=== PATIENT | male | born 1955 | race Caucasian/White ===

== ENCOUNTER 2020-05-09 03:14 | Outpatient (CLI) | payer BC, SELFPAY ==
[2020-05-09 19:05] LABS: SARS-CoV-2 RNA PCR Negative
== END 2020-05-09 03:15 | disposition home or self-care (01) ==
LOC: ANHCOVIDDT 03:14
PROVIDERS: PCP Internal Medicine; Visit Provider Internal Medicine Gastroenterology
DX: Z01.812 Encounter for preprocedural laboratory examination (principal); Z20.828 Contact with and (suspected) exposure to other viral communicable diseases
CPT/HCPCS: 87635; C9803; U0003

== ENCOUNTER 2020-05-11 00:25 | Day surgery (SDC) | payer BC, SELFPAY ==
[2020-05-07 10:27] VITALS: BMI 29.4
[2020-05-11 08:34] VITALS: BP 143/91; PULSE 77; RESP 18; TEMP 36.6; O2SAT 98
--- NOTE | 2020-05-11 08:36 | WPDANESEPPF ---
Anes - Initial Pre Proc Eval Procedure: Operation Date: 05/11/20 09:00 Proposed Procedures p Screening Colonoscopy - Roni Rolon MD Date/Time: 05/11/20 08:36 Surgeon: Roni Rolon MD Pre Op Diagnosis: Neoplasm Screening Patient Data Age: 64 Gender: M Height: 1.78 m Weight: 97.2 kg Last Vital Signs Temp 36.6 C 05/11/20 08:34 Pulse 77 05/11/20 08:34 Resp 18 05/11/20 08:34 BP 143/91 H 05/11/20 08:34 Pulse Ox 98 05/11/20 08:34 Allergies Allergy/AdvReac Type Severity Reaction Status Date / Time Sulfa (Sulfonamide Allergy Unknown Unknown Verified 05/11/20 08:33 Antibiotics) Home Medications Medication Instructions Recorded Confirmed Type peg 3350-electrolytes 236 240 ml PO Q10M #4000 ml 03/28/20 Rx gram-22.74 gram-6.74 gram-5.86 gram solution Adult Low Dose Aspirin 81 mg PO DAILY 05/07/20 05/11/20 History alprazolam 0.5 mg PO PRN PRN 05/07/20 05/07/20 History famotidine 20 mg PO DAILY 05/07/20 05/07/20 History lisinopril-hydrochlorothiazide 12.5 - 20 tablet PO DAILY 05/07/20 05/07/20 History rosuvastatin 5 mg PO DAILY 05/07/20 05/07/20 History sertraline 50 mg PO DAILY 05/07/20 05/07/20 History Patient hx anesthesia problems: none Family hx anesthesia problems: none PMFSH Past Medical History Medical History (Updated 05/11/20 @ 08:38 by Armond Clay MD) Actinic keratosis Anxiety Chronic GERD History of SCC (squamous cell carcinoma) of skin Hypercholesterolemia Hypertension Obesity Surgical History Surgical History History of blepharoplasty History of cholecystectomy History of tonsillectomy Family History Family History Father Heart disease Skin cancer Sibling Heart disease Cancer Skin cancer Mother Kidney disease Cancer Social History Social History (Reviewed 03/13/20 @ 08:15 by HAYLEY Cannon Smoking status: Former smoker Tobacco type: cigars Alcohol intake: current Alcohol use details: SOCIALLY Substance use: unknown Substance use type: does not use Living arrangements: with family Spiritual care concerns: No Anes - Eval Final PreProcedure Day of Procedure 05/11/20 08:36 Patient weight: obese Heart: regular rate and rhythm Lungs: clear to auscultation and normal air movement Airway: Mallampati scale class II Neurological: alert and oriented Last oral intake: >/= 8 hours ASA classification: III Emergent: no Anesthetic plan: proceed Anesthesia type and monitoring: general GIVS Informed Consent: The patient's anesthetic plan and its attendant risks and benefits were discussed with the patient/family/POA. Questions were solicited and answers provided to the satisfaction of the patient/family/POA.
[2020-05-11] MEDS: LACTATED RINGERS 1,000 ML 150 ML IV CONT (08:43)
--- NOTE | 2020-05-11 09:26 | PM.HPGS ---
History of Present Illness History of Present Illness Consent: Risks, benefits, and alternatives have been discussed and questions answered. Patient agrees to proceed with procedure. Chief complaint: Neoplasm Screening Narrative: Darian Duran is a 64 year old male with polyps, last colonoscopy 5 years ago Review of Systems Constitutional: Constitutional: Denies headache(s) and Denies weakness Eyes: Eyes: Denies blurry vision ENT: Reports Normal hearing present, Denies headache(s) and Denies neck pain Cardiovascular: Cardiovascular: Denies chest pain and Denies dyspnea Respiratory: Respiratory: Denies dyspnea Gastrointestinal: Gastrointestinal: Reports no additional gastrointestinal complaints Genitourinary: Genitourinary: Denies dysuria Musculoskeletal: Musculoskeletal: Denies neck pain Integumentary/Breasts: Skin/Breast: Denies dry skin Neurologic: Reports Normal hearing present, Denies headache(s) and Denies weakness Psychiatric: Psychiatric: Denies anxiety Endocrine: Endocrine: Denies change in body appearance Hematologic/Lymphatic: Hematologic/Lymphatic: Denies easy bleeding Allergic/Immunologic: Allergic/Immunologic: Denies urticaria PMFSH Past Medical History Medical History (Updated 05/11/20 @ 09:26 by Roni Rolon MD) Actinic keratosis Adenomatous colon polyp Anxiety Chronic GERD History of SCC (squamous cell carcinoma) of skin Hypercholesterolemia Hypertension Obesity Surgical History Surgical History History of blepharoplasty History of cholecystectomy History of tonsillectomy Family History Family History Father Heart disease Skin cancer Sibling Heart disease Cancer Skin cancer Mother Kidney disease Cancer Social History Social History Smoking status: Former smoker Tobacco type: cigars Alcohol intake: current Alcohol use details: SOCIALLY Substance use: unknown Substance use type: does not use Living arrangements: with family Spiritual care concerns: No Meds Home Medications and Allergies Home Medications Medication Instructions Recorded Confirmed Type peg 3350-electrolytes 236 240 ml PO Q10M #4000 ml 03/28/20 Rx gram-22.74 gram-6.74 gram-5.86 gram solution Adult Low Dose Aspirin 81 mg PO DAILY 05/07/20 05/11/20 History alprazolam 0.5 mg PO PRN PRN 05/07/20 05/07/20 History famotidine 20 mg PO DAILY 05/07/20 05/07/20 History lisinopril-hydrochlorothiazide 12.5 - 20 tablet PO DAILY 05/07/20 05/07/20 History rosuvastatin 5 mg PO DAILY 05/07/20 05/07/20 History sertraline 50 mg PO DAILY 05/07/20 05/07/20 History Allergies Allergy/AdvReac Type Severity Reaction Status Date / Time Sulfa (Sulfonamide Allergy Unknown Unknown Verified 05/11/20 08:33 Antibiotics) Vital Signs Vital Signs - 24 hr 05/11/20 08:34 Temperature 97.8 F Pulse Rate 77 Respiratory Rate 18 Blood Pressure 143/91 H Pulse Oximetry 98 Exam Const: General: comfortable and no acute distress HENMT: General nose exam: Normal nares present Eyes: General: appearance normal, both eyes and all related structures Neck: Neck: no JVD Resp: Auscultation: clear to auscultation bilaterally Cardio: Rate: regular rate Rhythm: regular rhythm GI: Inspection: non-distended GI Palp: Yes Soft to palpation Skin: General skin exam: normal color Neuro: General: gait normal Speech: normal speech Extrem: General: normal to inspection Psych: Mental Status: mental status grossly normal Assessment and Plan Assessment and plan (1) Adenomatous colon polyp: Code(s): D12.6 - Benign neoplasm of colon, unspecified Status: Acute Assessment and Plan: will proceed with colonoscopy
[2020-05-11 09:29] VITALS: BP 136/66; PULSE 69; RESP 20; O2SAT 97
[2020-05-11 09:39] VITALS: BP 131/88; PULSE 70; RESP 20; O2SAT 100
[2020-05-11 09:49] VITALS: BP 136/90; PULSE 62; RESP 17; O2SAT 100
== END 2020-05-11 09:53 | disposition home or self-care (01) ==
PROVIDERS: PCP Internal Medicine; Visit Provider Internal Medicine Gastroenterology
PROC: 0DJD8ZZ Inspection of Lower Intestinal Tract, Via Natural or Artificial Opening Endoscopic (ICD-10-PCS; CPT 45378; principal; 2020-05-11 09:00)
DX: Z12.11 Encounter for screening for malignant neoplasm of colon (principal); K63.5 Polyp of colon; D12.3 Benign neoplasm of transverse colon; K21.9 Gastro-esophageal reflux disease without esophagitis; I10 Essential (primary) hypertension; E78.00 Pure hypercholesterolemia, unspecified; E66.9 Obesity, unspecified; K64.8 Other hemorrhoids; F41.9 Anxiety disorder, unspecified; Z85.828 Personal history of other malignant neoplasm of skin; Z90.49 Acquired absence of other specified parts of digestive tract
CPT/HCPCS: 45385; 45380; 88305; J2704; J7120

== ENCOUNTER → 2021-07-25 11:46 | Outpatient (CLI) | payer BC, SELFPAY ==
--- NOTE | ~2021-07-25 | XR_ITS ---
EXAMINATION: XR chest 2V DATE: 07/25/2021 11:55 INDICATION: Bronchitis. 10 days of cough and C5-6 days of shortness of breath. TECHNIQUE: PA and lateral views of the chest were obtained. COMPARISON: None FINDINGS: The lungs are clear with no focal airspace opacities, pulmonary edema, pleural effusion or pneumothor ax. The cardiomediastinal silhouette is normal. Mild thoracic spondylosis. IMPRESSION: 1. No acute cardiopulmonary disease. Reviewed, dictated and finalized at location B. ERECTOR
== END ==
PROVIDERS: PCP Internal Medicine; Visit Provider Internal Medicine
DX: J40 Bronchitis, not specified as acute or chronic (principal)
CPT/HCPCS: 71046

== ENCOUNTER 2022-03-26 01:04 | Day surgery (SDC) | payer BC, SELFPAY ==
[2022-03-13 08:38] VITALS: BMI 31.6
[2022-03-26 08:26] VITALS: BP 128/92; PULSE 62; RESP 20; TEMP 36.5; O2SAT 98
[2022-03-26] MEDS: LACTATED RINGERS 1,000 ML 150 ML IV CONT (08:42)
--- NOTE | 2022-03-26 08:51 | WPDANESEPPF ---
Anes - Initial Pre Proc Eval Procedure: Operation Date: 03/26/22 10:15 Proposed Procedures p Esophagogastroduodenoscopy - Roni Rolon MD Date/Time: 03/26/22 08:51 Surgeon: Roni Rolon MD Pre Op Diagnosis: dysphagia Patient Data Age: 66 Gender: M Height: 1.78 m Weight: 101.2 kg Last Vital Signs Temp 97.7 F 03/26/22 08:26 Pulse 62 03/26/22 08:26 Resp 20 03/26/22 08:26 BP 128/92 H 03/26/22 08:26 Pulse Ox 98 03/26/22 08:26 O2 Del Method Room Air 03/26/22 08:26 Allergies Allergy/AdvReac Type Severity Reaction Status Date / Time Sulfa (Sulfonamide Allergy Unknown Unknown Verified 03/26/22 08:25 Antibiotics) Home Medications Medication Instructions Recorded Confirmed Type peg 3350-electrolytes 236 240 ml PO Q10M #4,000 mL 03/28/20 03/13/22 Rx gram-22.74 gram-6.74 gram-5.86 gram solution (Golytely) Adult Low Dose Aspirin 81 mg PO DAILY 05/07/20 03/13/22 History alprazolam 0.5 mg tablet 0.5 mg PO PRN PRN Sleep 05/07/20 03/13/22 History famotidine 20 mg tablet 20 mg PO DAILY 05/07/20 03/13/22 History lisinopril 20 12.5 - 20 tablet PO DAILY 05/07/20 03/13/22 History mg-hydrochlorothiazide 12.5 mg tablet rosuvastatin 5 mg tablet 5 mg PO DAILY 05/07/20 03/13/22 History sertraline 50 mg tablet 50 mg PO DAILY 05/07/20 03/13/22 History fluticasone propionate 44 44 mcg inhalation 2XD 03/13/22 03/13/22 History mcg/actuation HFA aerosol inhaler (Flovent HFA) Patient hx anesthesia problems: none Family hx anesthesia problems: none Results Review: All pre-operative results and documents have been reviewed as part of the pre-operative evaluation. [facility] Past Medical History Medical History Actinic keratosis Adenomatous colon polyp Anxiety Chronic GERD History of SCC (squamous cell carcinoma) of skin Hypercholesterolemia Hypertension Obesity Surgical History Surgical History History of blepharoplasty History of cholecystectomy History of tonsillectomy Family History Family History Father Heart disease Skin cancer Sibling Heart disease Cancer Skin cancer Mother Kidney disease Cancer Social History Social History Smoking status: Never smoker Tobacco type: cigars Alcohol intake: current Drinks per week: 3 Alcohol use details: SOCIALLY Substance use: never Substance use type: does not use Living arrangements: with family Spiritual care concerns: No Anes - Eval Final PreProcedure Day of Procedure 03/26/22 08:51 Patient weight: obese Heart: regular rate and rhythm Lungs: clear to auscultation Airway: Mallampati scale class II Neurological: alert and oriented Last oral intake: >/= 8 hours ASA classification: III Emergent: no Anesthetic plan: proceed Anesthesia type and monitoring: general GIVS and standard monitoring Results Review: All pre-operative results and documents have been reviewed as part of the pre-operative evaluation. Informed Consent: The patient's anesthetic plan and its attendant risks and benefits were discussed with the patient/family/POA. Questions were solicited and answers provided to the satisfaction of the patient/family/POA.
--- NOTE | 2022-03-26 09:04 | PM.HPGS ---
History of Present Illness History of Present Illness Consent: Risks, benefits, and alternatives have been discussed and questions answered. Patient agrees to proceed with procedure. Chief complaint: dysphagia Narrative: Darian Duran is a 66 year old male with sensation of gagging after eating and nausea, had EGD but years ago, using famotidine Review of Systems Constitutional: Constitutional: Denies headache(s) and Denies weakness Eyes: Eyes: Denies blurry vision ENT: Reports Normal hearing present, Denies headache(s) and Denies neck pain Cardiovascular: Cardiovascular: Denies chest pain and Denies dyspnea Respiratory: Respiratory: Denies dyspnea Gastrointestinal: Gastrointestinal: Reports no additional gastrointestinal complaints Genitourinary: Genitourinary: Denies dysuria Musculoskeletal: Musculoskeletal: Denies neck pain Integumentary/Breasts: Skin/Breast: Denies dry skin Neurologic: Reports Normal hearing present, Denies headache(s) and Denies weakness Psychiatric: Psychiatric: Denies anxiety Endocrine: Endocrine: Denies change in body appearance Hematologic/Lymphatic: Hematologic/Lymphatic: Denies easy bleeding Allergic/Immunologic: Allergic/Immunologic: Denies urticaria PMF Past Medical History Medical History (Updated 03/26/22 @ 09:05 by Roni Rolon MD) Actinic keratosis Adenomatous colon polyp Anxiety Choking Chronic GERD History of SCC (squamous cell carcinoma) of skin Hypercholesterolemia Hypertension Obesity Surgical History Surgical History History of blepharoplasty History of cholecystectomy History of tonsillectomy Family History Family History Father Heart disease Skin cancer Sibling Heart disease Cancer Skin cancer Mother Kidney disease Cancer Social History Social History Smoking status: Never smoker Tobacco type: cigars Alcohol intake: current Drinks per week: 3 Alcohol use details: SOCIALLY Substance use: never Substance use type: does not use Living arrangements: with family Spiritual care concerns: No Meds Home Medications and Allergies Home Medications Medication Instructions Recorded Confirmed Type peg 3350-electrolytes 236 240 ml PO Q10M #4,000 mL 03/28/20 03/13/22 Rx gram-22.74 gram-6.74 gram-5.86 gram solution (Golytely) Adult Low Dose Aspirin 81 mg PO DAILY 05/07/20 03/13/22 History alprazolam 0.5 mg tablet 0.5 mg PO PRN PRN Sleep 05/07/20 03/13/22 History famotidine 20 mg tablet 20 mg PO DAILY 05/07/20 03/13/22 History lisinopril 20 12.5 - 20 tablet PO DAILY 05/07/20 03/13/22 History mg-hydrochlorothiazide 12.5 mg tablet rosuvastatin 5 mg tablet 5 mg PO DAILY 05/07/20 03/13/22 History sertraline 50 mg tablet 50 mg PO DAILY 05/07/20 03/13/22 History fluticasone propionate 44 44 mcg inhalation 2XD 03/13/22 03/13/22 History mcg/actuation HFA aerosol inhaler (Flovent HFA) Allergies Allergy/AdvReac Type Severity Reaction Status Date / Time Sulfa (Sulfonamide Allergy Unknown Unknown Verified 03/26/22 08:25 Antibiotics) Vital Signs Vital Signs - 24 hr 03/26/22 08:26 Temperature 97.7 F Pulse Rate 62 Respiratory Rate 20 Blood Pressure 128/92 H Pulse Oximetry 98 Oxygen Delivery Room Air Exam Const: General: comfortable and no acute distress HENMT: General nose exam: Normal nares present Eyes: General: appearance normal, both eyes and all related structures Neck: Neck: no JVD Resp: Auscultation: clear to auscultation bilaterally Cardio: Rate: regular rate Rhythm: regular rhythm GI: Inspection: non-distended GI Palp: Yes Soft to palpation Skin: General skin exam: normal color Neuro: General: gait normal Speech: normal speech Extrem: General: normal to inspect
[2022-03-26] MEDS: BENZOCAINE (*SP) 60 ML SPRAY CAN (HURRICAINE) 1 SPRAY MUCOUS MEM (09:09)
[2022-03-26 09:19] VITALS: BP 110/75; PULSE 66; RESP 17; O2SAT 99
[2022-03-26 09:29] VITALS: BP 122/83; PULSE 55; RESP 18; O2SAT 98
[2022-03-26 09:39] VITALS: BP 138/87; PULSE 54; RESP 18; O2SAT 99
== END 2022-03-26 09:43 | disposition home or self-care (01) ==
PROVIDERS: PCP Internal Medicine; Visit Provider Internal Medicine Gastroenterology
PROC: 0DJ08ZZ Inspection of Upper Intestinal Tract, Via Natural or Artificial Opening Endoscopic (ICD-10-PCS; CPT 43235; principal; 2022-03-26 10:15)
DX: R13.10 Dysphagia, unspecified (principal); K21.00 Gastro-esophageal reflux disease with esophagitis, without bleeding; K29.50 Unspecified chronic gastritis without bleeding; K44.9 Diaphragmatic hernia without obstruction or gangrene; I10 Essential (primary) hypertension; E78.00 Pure hypercholesterolemia, unspecified; E66.9 Obesity, unspecified; F41.9 Anxiety disorder, unspecified; Z90.49 Acquired absence of other specified parts of digestive tract; Z86.010 Personal history of colon polyps
CPT/HCPCS: 43239; 88305; J2704; J7120

== ENCOUNTER 2023-04-09 08:00 | Outpatient (NON) | payer MEDICARE, OTHER, SELFPAY | END 2023-04-09 08:01 | disposition home or self-care (01) | PROVIDERS: PCP Internal Medicine; Visit Provider Nurse Practitioner | DX: L57.0 Actinic keratosis (principal) | CPT/HCPCS: 88305 ==

== ENCOUNTER 2023-05-05 12:42 | Outpatient (NON) | payer MEDICARE, OTHER, SELFPAY | END 2023-05-05 12:43 | disposition home or self-care (01) | PROVIDERS: PCP Internal Medicine; Visit Provider Nurse Practitioner | DX: D48.5 Neoplasm of uncertain behavior of skin (principal) | CPT/HCPCS: 88305 ==

== ENCOUNTER 2025-04-25 00:52 | Day surgery (SDC) | payer MEDICARE, OTHER, SELFPAY ==
[2025-04-14 13:00] VITALS: BMI 33.3
--- NOTE | 2025-04-14 13:29 | PC.NURSE ---
Spoke with _PATIENT regarding medication PLAVIX. PATIENT verbalizes understanding that the last dose is to be taken on 04/20/2025 and the Endoscopist will instruct them when to restart after the procedure.
--- OUTSIDE RECORDS SUMMARY | 2025-04-25 00:54 | XMS_ITS | Encounter Summary ---
Author Organization [facility] Healthcare Address [address] [place] [address] Care Team Providers Care Terrazzo Finisher Name Role Phone Carlos Alberto Moreno DEMURRAGE CLERK Unavailable Unavailable Scott Oropeza MD Primary Care Provi polo Encounter Details Date Type Department Care Team (Late Contact Info) Description 03/22/2025 Results Follow-Up [facility] Primary Care at [address] [place] [address] Scott Oropeza MD [address] [place], [place] [id number] CBC with auto differential, Comprehensive metabolic panel, Lipase, Additional followed-up results: 3 Social History Tobacco Use Types Packs/Day Years Used Date Smoking Tobacco: Former Cigars 1994 Smokeless Tobacco: Never Comments:Socially smoked cig ars in the . Approx 5per week Alcohol Use Standard Drinks/Week Comments Yes 6 (1 standard drink = 0.6 oz pur e alcohol) AUDIT-C Answer Date Recorded Q1: How often do you have a drink containing alc ohol? 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
--- OUTSIDE RECORDS SUMMARY | 2025-04-25 00:54 | XMS_ITS | Clinical Summary ---
Author Organization [facility] Address [address] [place] [address] Care Team Providers Care Photographer Portrait Name Role Phone Naa Richey MD Primary Care Provider [phone] Source Comments [facility],non-owned Affiliates and Associated Physician Practices is amultiple site organization consisting of ambulatory clinics and hospital sitesin [place], [place], [place] and [place]. This disclosure is being madepursuant to the Care Everywhere program and may not contain all information available regarding this patient. 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 Social History Tobacco Use Types Packs/Day Years Used Date Smoking Tobacco: Former Smokeless Tobacco: Never Alcohol Use Standard Drinks/Week Comments Yes 10 (1 standard drink = 0.6 oz pu re alcohol) Sex and Gender Information Value Date Recorded Sex Assigned at Not on file 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 Gender Identity Not on file Sexual Orientation Not on file Last Filed Vital Signs Vital Sign Reading Time Taken Comments Blood Pressure 112/72 09/26/2013 10:18 AM CDT Pulse 60 09/26/2013 10:18 AM CDT Temperature 36.7 C (98 F) 09/26/2013 10:18 AM CDT Respiratory Rate 16 09/26/2013 10:18 AM CDT Oxygen Saturation 96% 09/26/2013 10:18 AM CDT Inhaled Oxygen Concentration - - Weight 99.8 kg (220 lb) 09/26/2013 7:29 AM CDT Height 177.8 cm (5' 10) 09/26/2013 7:29 AM CDT Body Mass Index 31.57 09/26/2013 7:29 AM CDT Plan of Treatment Health Maintenance Due Date Last Done Comments COLOGUARD (AGES 45-75) - COL ON CA SCREENING 1957 COLON MONITORING 1957 COLONOSCOPY - COLON CA SCREENING 1957 CT COLONOGRAPHY - COLON CA SCREENING 1957 Colorectal Cancer Screening 1957 FIT - COLON CA SCREENING 1957 FLEX SIG - COLON CA SCREENING 1957 LIPID TESTING 1957 MEDICARE AWV 12 MONTHS 1957 HEPATITIS C SCREENING 08/16/1975 DTAP/TDAP/TD VACCINES (1 - Tdap) 1976 PNEUMOCOCCAL VACCINE 50+ (1 of 1 - PCV) 2007 ZOSTER VACCINE (1 of 2) 2007 AAA SCREENING 2022 DEPRESSION SCREENING 07/20/2024 COVID-19 VACCINE (1 - 2023-2 5 season) 2025 INFLUENZA VACCINE (#1) 2025 Respiratory Syncytial Virus (RSV) Vaccine Pt: or over 60 yrs (1 - 1-dose 75+ series) 2032 HEPATITIS B VACCINE Aged Out No longe r eligible based on patient's age to complete this topic HIB VACCINE Aged Out No longer eligi ble based on patient's age to complete this topic HPV VACCINE Aged Out No longer eligi ble based on patient's age to complete this topic MENINGOCOCCAL (Group B) VACC INE SHARED DECISION-MAKING Aged Out No longer eligibl e based on patient's age to complete this topic MENINGOCOCCAL GROUPS A/C/Y/W VACCINE Aged Out No longer eligible b ased on patient's age to complete this topic Insurance REPLACED BY [facility] MEDICARE [facility] [address] Care Teams Photographer Portrait Relationship Specialty Start Date End Date Naa Richey MD PCP - General 01/29/12
--- OUTSIDE RECORDS SUMMARY | 2025-04-25 00:54 | XMS_ITS | Clinical Summary ---
Author Organization [facility] Address [address] [place] [id number] Care Team Providers Care Fur Weigher Name Role Phone Carlos Alberto Moreno ELECTRONIC WARFARE OFFICER Unavailable Unavailable Scott Oropeza MD Primary Care Provi polo Allergies Active Allergy Reactions Criticality Noted Date Comments Atorvastatin Swelling Medium Simvastatin Swelling Medium Sulfa (Sulfonamide Antibiotics) Sulfasalazine Unknown Medications sildenafil (VIAGRA) 100 mg tablet TAKE 1 TABLET (100MG) BY ORAL ROUTE EVERY DAY NEEDED APPROXIMATELY 1 HOUR BEFORE SEXUAL ACTIVITY 18 2 010 Active aspirin 81 mg tablet take 1 tablet (81MG) by oral route every day 0 011 Active cetirizine (ZyrTEC) 5 mg tablet Take 1 tablet (5 mg total) by mouth daily 023 Active omeprazole (PriLOSEC) 20 mg capsule Take 1 capsule (20 mg total) by mouth daily 023 Active fluticasone propionate (FLONASE) 50 mcg/actuation nasal spray INHALE 2 PUFFS IN EACH NOSTRIL ONCE DAILY Active clopidogreL (PLAVIX) 75 mg tablet Take 1 tablet (75 mg total) by mouth daily Active vitamin E 400 unit capsule Take 1 capsule (400 Units total) by mouth Active Vascepa 1 gram capsuleIndication s:Hypertriglyceri demia Take 2 capsules (2 g total) by mouth 2 (two) times a day 360 capsule 1 025 Active lisinopril-hydroC HLOROthiazide (ZESTORETIC) 20-12.5 mg per tabletIndications :Primary hypertension Take 1 tablet by mouth daily 90 tablet 1 025 Active rosuvastatin (CRESTOR) 40 mg tabletIndications :Mixed hyperlipidemia TAKE 1 TABLET BY MOUTH EVERY DAY 90 tablet 025 Active Wegovy 0.25 mg/0.5 mL auto-injector INJECT 0.25 MG SUBCUTANEOUSLY EVERY WEEK 025 Active ALPRAZolam (XANAX) 0.5 mg tablet TAKE 1 TABLET BY MOUTH TWICE A DAY NEEDED FOR SLEEP/ANXIETY 180 tablet 025 Active sertraline (ZOLOFT) 50 mg tablet TAKE 1 TABLET DAILY 90 tablet 1 025 Active sertraline (ZOLOFT) 50 mg tablet TAKE 1 TABLET DAILY 90 tablet 1 025 2024 Discontinued ALPRAZolam (Xanax) 0.5 mg tablet Take 1 tablet by mouth twice a day as needed for sleep/anxiety 180 tablet 025 2024 Discontinued Active Problems Problem Noted Date Diagnosed Date Abdominal pain 03/21/2025 Assessment & Plan (03/21/2025 11:31 AM CDT): Orders: XR Abdomen 1 View AP; Future Lipase; Future Comprehensive metabolic panel; Future CBC with auto differential; Future Constipation 03/21/2025 Assessment & Plan (03/21/2025 11:31 AM CDT): Orders: XR Abdomen 1 View AP; Future Atypical chest pain 01/26/2025 Assessment & Plan (01/26/2025 7:37 AM CDT): Orders: Troponin T high-sensitivity; Future ECG 12 lead; Future Screening for colon cancer 01/26/2025 Assessment & Plan (01/26/2025 7:37 AM CDT): Orders: Ambulatory referral to Gastroenterology; Future Coronary artery calcification seen on CT scan Asthma 06/23/2024 Assessment & Plan (10/24/2024 7:45 AM CDT): Coronary artery disease invo lving [place] coronary artery of [place] heart without angina pectoris 06/23/2024 Assessment & Plan (01/26/2025 7:37 AM CDT): MetALD 06/02/2024 Dysfunction of left eustachian tube 12/28/2023 Assessment & Plan (12/28/2023 11:23 AM CDT): Flonase 2 sprays into each nostril while looking down over the sink, do not sniff in or blow nose after use for at least 30 minutes daily Otitis externa, fungal, right ear 12/09/2023 Assessment & Plan (12/28/2023 11:23 AM CDT): Continue Lotrimin to the Right ear twice daily until follow up If clear at follow up will discuss vinegar and alcohol recipe Assessment & Plan (12/09/2023 8:42 AM CDT): Lotrimin 10 drops into Right EAR, NOT EYE, twice daily for 14 days How to Use Ear Drops Continue Nasal saline followed by Flonase 2 sprays into each nostril while looking down over the sink, do not sniff in or blow nose after use for at least [address] neck for left vocal fold paralysis Modified barium swallow Centralized Scheduling: Follow up in 2 weeks to recheck right ear Vocal fold paralysis, 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 Oropharyngeal dysphagia 12/09/2023 Assessment & Plan (12/10/2023 7:26 AM CDT): CT neck for left vocal fold paralysis Modified barium swallow Alcohol use 11/26/2023 STUART (obstructive sleep apnea) 05/04/2023 Diverticulosis of colon 07/22/2017 Assessment & Plan (03/21/2025 11:31 AM CDT): Assessment & Plan (07/22/2017 11:05 AM 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): Found during recent CT scan but never had diverticulitis Adenomatous polyp of colon 07/22/2017 Assessment & Plan (07/22/2017 11:05 AM 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): Last colonoscopy 2014 and had few previously, due 2020 (also brother with colon cancer) Class 1 obesity due to exces s calories with serious comorbidity and body mass index (BMI) of 33.0 to 33.9 in adult 12/29/2016 Assessment & Plan (01/26/2025 7:37 AM CDT): Assessment & Plan (10/24/2024 7:45 AM CDT): Tremor of right hand 12/29/2016 Hypertension 10/25/2015 Overview (10/24/2016): BENIGN HYPERTENSION Assessment & Plan (01/26/2025 7:37 AM CDT): Assessment & Plan (10/24/2024 7:45 AM CDT): Blood pressure is well controlled and at goal. Continue lisinopril/hydrochlorothiazide daily. 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 Continue with fiber in diet Assessment & Plan (03/27/2017 3:17 PM CDT): On hi fiber diet and align the pain is decreasing in frequency and duration. Suggested present egimen is working but slowly.. Gave align samples and return prn Assessment & Plan (02/27/2017 2:09 PM CDT): abios for abscess tooth and developed LLQ sharp velasquez with alteration of bowel function and then RLQ pains. Not betty day not constant. Last colon 04/03. No blood sergo the stool. Will try hi fiber dioet and I gave samples of align. Return 4 weeks and reevaluate then Elevated prostate specific antigen (PSA) 07/11/2016 12/29/2016 Overview (10/23/2016): Elevated PSA Sore throat 08/31/2014 12/29/2016 Overview (10/23/2016): Sore throat Influenza due to influenza A virus 08/31/2014 12/29/2016 Overview (10/23/2016): Influenza A Encounters Date Type Department Care Team Description 03/23/2025 Telephone [facility] Primary Care at [address] [phone] Scott Oropeza MD Test Results 03/22/2025 Results Follow-Up [facility] Primary Care at [address] [place] [phone] Scott Oropeza MD CBC with auto differential, Comprehensive metabolic panel, Lipase, Additional followed-up results: 3 03/21/2025 12:00 PM CDT Lab [facility] Outpatient Lab - Outpatient Center at [address] [address] Abdominal pain 03/21/2025 11:30 AM CDT Office Visit [facility] Medical [facility] Primary Care at [address] [phone] Scott Oropeza MD Abdominal pain (Primary Dx); Constipation, unspecified constipation type; Diverticulosis of colon 03/21/2025 11:24 AM CDT - 03/21/2025 11:59 PM CDT Hospital Encounter [facility] Radiology - Outpatient Center at [address] [address] Abdominal pain; Constipation, unspecified constipation type Discharge Disposition: Discharge to home or self care 01/26/2025 8:15 AM CDT Lab [address] [phone] Primary hypertension; Atypical chest pain; Screening PSA (prostate specific antigen) 01/26/2025 7:55 AM CDT - 01/26/2025 11:59 PM CDT Hospital Encounter [facility] Cardiology [address] [place] [phone] Atypical chest pain Discharge Disposition: Discharge to home or self care 01/26/2025 7:30 AM CDT Office Visit [facility] Primary Care at [address] [phone] Scott Oropeza MD Primary hypertension (Primary Dx); Atypical chest pain; Class 1 obesity due to excess calories with serious comorbidity and body mass index (BMI) of 33.0 to 33.9 in adult; Coronary artery disease involving [place] coronary artery of [place] heart without angina pectoris; Screening PSA (prostate specific antigen); Screening for colon cancer 01/26/2025 Results Follow-Up [facility] Medical [facility] Primary Care at [address] [phone] Scott Oropeza MD ECG 12 lead, Lipid panel, Comprehensive metabolic panel, Additional followed-up results: 3 from Last 3 Months Immunizations Immunization Administration Dates Next Due COVID-19 mRNA (PFIZER) 0.3 m L (30 mcg) vaccine (12 years and up) 04/06/2023 Hep A / Hep B 10/12/2019,05/30/2019,04/08/2019 Hep A, Adult 10/11/2019,05/29/2019,04/07/2019 Hep B Vaccine 10/11/2019,05/29/2019,04/07/2019 Influenza, Quad, Adjuvantate d, Intramuscular 04/06/2023 Influenza, Quadrivalent, Spl it, Intramuscular 04/19/2015 Influenza, Quadrivalent, Spl it, Preservative Free, Intradermal 04/28/2016 Influenza, Quadrivalent, Spl it, Preservative Free, Intramuscular 04/23/2022,05/01/2021,05/04/2020 Influenza, Trivalent, High D ose, Split, Preservative Free, Intramuscular 04/21/2024 Influenza, Trivalent, IM (MDV) 04/19/2014,2012 Influenza, Trivalent, Preser vative Free, Intramuscular 05/03/2017,04/28/2016,04/19/2014,05/16 Influenza, Unspecified 04/21/2024,2022,05/01/2022,05/19,05/03/2020,05/03/2017,04/18/2017 Moderna SARS-CoV-2 Monovalen t Vaccination (12+ YRS) 02/02/2022 Pfizer SARS-CoV-2 Monovalent Vaccination (12+ Yrs) PURPLE 10/09/2020,09/18/2020 Pneumococcal Conjugate Pcv20 02/02/2022 Pneumococcal Conjugate, Unspecified 04/15/2013 Pneumococcal Polysaccharide PPV23 04/15/2013 RSV Vaccine, Pref, Recombina nt, Subunit, Adjuvanted, PF, IM (Arexvy) 06/21/2023 Sars-CoV-2, Unspecified 06/09/2021,10/08/2020, Td, Unspecified 08/13/2007 Td, adsorbed 08/13/2007 Tdap 01/16/2018,01/06/2018,08/12/2007 ZOSTER Recombinant 06/21/2023, 9,11/23/2018,09/15 Zoster, unspecified 09/14/2018 Surgical History Surgery Date Site/Laterality Comments LAPAROSCOPIC CHOLECYSTECTOMY 2003 lap nargis OTHER SURGICAL HISTORY eyelid surgery x 2 TONSILLECTOMY 1978 Tonsillectomy CHOLECYSTECTOMY 2001 Cholecystectomy OTHER SURGICAL HISTORY 2013 eyelids pulled up again OTHER SURGICAL HISTORY 2014 rt eyelind surgery OTHER SURGICAL HISTORY eye lid CARDIAC STENT PLACEMENT 12/30/2023 Bilateral Medical History Medical History Date Comments Hx Other Medical HTN Hx Other Medical elev chol Anxiety disorder anxiety Polyp of colon 2005 colon polyps Hx Other Medical edema Hx Other Medical chronic progres sive external ophthalmoplegia; Comments: right eye Hx Other Medical 2005 carpal tunnel; Comments: b/l Hx Other Medical 1979 eyelid surgery Hx Other Medical 1989 eyelid surgery Hx Other Medical CPEO Hx Other Medical 2008 CPEO Hx Other Medical 2012 opthalmoplegia surgery Hx Other Medical 2013 rt eye ptosis r epair. Asthma Family History Medical History Relation Name Comments Coronary artery disease Brother 1 Priscilla Ashby nary artery disease; Kidney disease Brother 2 Renal disease ; Coronary artery disease Brother 3 CABG ; Heart attack Father Myocardial infa rction; Cause of : Myocardial infarction/heart attack; Depression Mother Depression; Kidney disease Mother Renal disease ; Cause of : Renal disease/Renal disease; Relation Name Status Comments Brother 1 Priscilla Brother 2 Brother 3 Father Mother Social History Tobacco Use Types Packs/Day Years Used Date Smoking Tobacco: Former Cigars 1 1994 Smokeless Tobacco: Never Tobacco Cessation:Counseling Given: Not Answered Comments:Socially smoked cigars in the 1990s. 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 Gender Identity Not on file Sexual Orientation Not on file Obstetrics History Last Filed Vital Signs Vital Sign Reading Time Taken Comments Blood Pressure 126/72 03/21/2025 11:03 AM CDT Pulse 74 03/21/2025 11:03 AM CDT Temperature 36.5 C (97.7 F) 03/21/2025 11:03 AM CDT Respiratory Rate 18 03/21/2025 11:03 AM CDT Oxygen Saturation 98% 03/21/2025 11:03 AM CDT Inhaled Oxygen Concentration - - Weight 103.9 kg (229 lb) 03/21/2025 11:03 AM CDT Height 175.3 cm (5' 9.02) 03/21/2025 11:03 AM C DT Body Mass Index 33.8 03/21/2025 11:03 AM CDT Plan of Treatment Health Maintenance Due Date Last Done Comments Colon Cancer Screening-Colonoscopy 04/17/2020 04/17/2015, 04/17/2015, 04/17/2015, Additional history exists Well Visit 65+ 2022 Covid-19 Vaccine ( season) 2025 04/21/2024, 04/06/2023, 05/05/2022, Additional history exists Influenza Vaccine (#1) 2025 , 04/21/2024, 04/06/2023, Additional history exists Fall Risk Assessment 06/23/2025 06/23/2024 Prostate Cancer Screening-PSA 01/26/2026, 06/10/2023, 01/30/2022, Additional history exists Depression Screening 03/21/2026 03/21/2025, 03/21/2025, 01/26/2025, Additional history exists DTaP/Tdap/Td Vaccine (6 - Td or Tdap) 01/17/2028 01/16/2018, 01/06/2018, 08/13/2007, Additional history exists Colon Cancer Screening-CT Colonography Discontinued 04/17/2015, 04/17/2015, 04/17/2015, Additional history exists Colon Cancer Screening-DNA Stool Discontinued 04/17/2015, 04/17/2015, 04/17/2015, Additional history exists Colon Cancer Screening-FIT Discontinued 04/17, 04/17/2015, 04/17/2015, Additional history exists Colon Cancer Screening-Sigmoidoscopy Discontinued 04/17/2015, 04/17/2015, 04/17/2015, Additional history exists Hepatitis B Screening Completed 10/12/2019 , 10/11/2019, 05/30/2019, Additional history exists Pneumococcal vaccine 65+ Completed 022, 04/15/2013, 04/15/2013 Zoster Vaccine Completed 06/21/2023, 0502/2019, 11/23/2018, Additional history exists Hepatitis C Screening Completed 06/25/2023, 017 Abdominal Aortic Aneurysm (A AA) Screen Completed 07/01/2023, 04/14/2017 Procedures Procedure Name Priority Date/Time Associated Diagnosis Comments XR ABDOMEN AP 1 VIEW Schedule Routine, Read Routine (OP Routine) 03/21/2025 11:30 AM CDT Abdominal pain Constipation, unspecified constipation type EGFR Routine 03/21/2025 11:25 AM CDT Abdominal pain DIFFERENTIAL AUTO Routine 03/21/2025 11: 25 AM CDT Abdominal pain LIPASE Routine 03/21/2025 11:25 AM CDT Abdominal pain COMPREHENSIVE METABOLIC PANEL Routine 03/21/2025 11:25 AM CDT Abdominal pain CBC WITH AUTO DIFFERENTIAL Routine 03/21/2025 11:25 AM CDT Abdominal pain ECG 12-LEAD Routine 01/26/2025 8:08 AM CDT Atypical chest pain EGFR Routine 01/26/2025 8:00 AM CDT Primary hypertension PSA SCREEN Routine 01/26/2025 8:00 AM CDT Screening PSA (prostate specific antigen) TROPONIN T HIGH-SENSITIVITY Routine 01/26/2025 8:00 AM CDT Atypical chest pain COMPREHENSIVE METABOLIC PANEL Routine 01/26/2025 8:00 AM CDT Primary hypertension LIPID PANEL Routine 01/26/2025 8:00 AM CDT Primary hypertension HEPATITIS C ANTIBODY Routine 06/25/2023 9:35 AM 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 ABDOMEN PELVIS W CONTRAST Schedule Routine, Read Routine (OP Routine) 04/14/2017 3:02 PM CDT Left lower quadrant pain COLONOSCOPY 04/17/2015 12:00 AM CDT from Last 3 Months or Most Recently Relevant to Health Maintenance Results * XR Abdomen 1 View AP (03/21/2025 11:30 AM CDT) Anatomical Region Laterality Modality Body, Abdomen N/A Computed Radiogr aphy 03/30/2025 8:10 AM CDT Narrative 03/30/2025 8:12 AM CDT EXAM DESCRIPTION: XR ABDOMEN AP 1 VIEW REASON FOR STUDY: 1 month abdominal pain, left side Pain in left lower abdomen for a month Hx of gallbladder removal Last BM was today TECHNIQUE: Single frontal radiographic view of the abdomen. COMPARISON: 04/14/2017 FINDINGS: There is no definite evidence of a bowel obstruction. Postsurgical clips are noted in the right upper quadrant of the abdomen. There are degenerative changes of the spine, bilateral sacroiliac joints, and bilateral hips. IMPRESSION: 1. No definite evidence of bowel obstruction. THIS IS AN ELECTRONICALLY VERIFIED FINAL REPORT 03/30/2025 8:12 AM - Electronically signed by Sherie Lam D.O. PS: PS Report ID: [id number] Reading Location: [id number] Procedure Note Sherie Lam DO - 03/30/2025 EXAM DESCRIPTION: XR ABDOMEN AP 1 VIEW REASON FOR STUDY: 1 month abdominal pain, left side Pain in left lower abdomen for a month Hx of gallbladder removal LastBM was today TECHNIQUE: Single frontal radiographic view of the abdomen. COMPARISON: 04/14/2017 FINDINGS: There is no definite evidence of a bowel obstruction. Postsurgical clipsare noted in the right upper quadrant of the abdomen. There are degenerative changes of the spine, bilateral sacroiliac joints, and bilateral hips. IMPRESSION: 1. No definite evidence of bowel obstruction. THIS IS AN ELECTRONICALLY VERIFIED FINAL REPORT 03/30/2025 8:12 AM - Electronically signed by Sherie Lam D.O. PS: PS Report ID: [id number] Reading Location: [place] [address] Scott Oropeza MD IMG XR PROCEDURES F inal Result * eGFR (03/21/2025 11:25 AM CDT) eGFR 71 >=60 mL/min/1. 73 m2 Comment: Interpretive Data Reference Interval Normal >/= 90 mL/min/1.73m2 Mildly decreased* 60 - 89 mL/min/1.73m2 Mildly to moderately decreased 45 - 59 mL/min/1.73m2 Moderately to severely decreased 30 - 44 mL/min/1.73m2 Severely decreased 15 - 29 mL/min/1.73m2 Kidney Failure < 15 mL/min/1.73m2 *Relative to young adult level Estimated glomerular filtration rate is determined by the 2020 CKD-EPI equation recommended by the National Kidney Foundation (A Unifying Approach to GFR Estimation: Recommendations of the NKF-ASK Task Force on Reassessing the Inclusion of Race in Diagnosing Kidney Disease, JASN 2020). The CKD-EPI equation should not be used for patients with unstable renal function and has not been validated in children and those over 70. Current interpretive data was last reviewed 2021. Testing performed by: [address] [facility] Blood 03/21/2025 11:2 5 AM CDT 03/21/2025 6:03 PM CDT Scott Oropeza MD LAB BLOOD ORDERABLE S Final Result [facility] [id number] [facility] Department [place] [address] * Differential, auto (03/21/2025 11:25 AM CDT) Pathologist [facility] Neutrophil abs 4.34 1.50 - 6.50 K/cumm Comment:Testing performed by : [facility], [address] [place] [address]., [id number] Imm gran abs 0.02 0.00 - 0.10 K/cumm CERNER CH Comment:Testing performed by : [facility], [address] [place] [address]., [id number] Lymphocyte abs 2.15 0.80 - 3.30 K/cumm CERNER CH Comment:Testing performed by : [facility], [address] [place] [address]., [id number] Monocyte abs 0.63 0.20 - 0.80 K/cumm CERNER CH Comment:Testing performed by : [facility], [address] [place] [address]., [id number] Eosinophil abs 0.07 0.00 - 0.50 K/cumm CERNER CH Comment:Testing performed by : [facility], [address] [place] [address]., [id number] Basophil abs 0.04 0.00 - 0.10 K/cumm CERNER CH Comment:Testing performed by : [facility], [address] [place] [address]., [id number] Neutrophil pct 59.7 % CERNER CH Comment: Interpretive Data Percent cell count reference ranges are not reported, since discordance with absolute values may lead to misinterpretation of CBC data. Current Interpretive Data was last revised on 2017. Testing performed by: [facility], [address] [place] [address]., [id number] Imm gran pct 0.3 % CERNER CH Comment: Interpretive Data Percent cell count reference ranges are not reported, since discordance with absolute values may lead to misinterpretation of CBC data. Current Interpretive Data was last revised on 2017. Testing performed by: [facility], [address] [place] [address]., [id number] Lymphocyte pct 29.7 % CERNER CH Comment: Interpretive Data Percent cell count reference ranges are not reported, since discordance with absolute values may lead to misinterpretation of CBC data. Current Interpretive Data was last revised on 2017. Testing performed by: [facility], [address] [place] [address]., [id number] Monocyte pct 8.7 % CERNER CH Comment: Interpretive Data Percent cell count reference ranges are not reported, since discordance with absolute values may lead to misinterpretation of CBC data. Current Interpretive Data was last revised on 2017. Testing performed by: [address] [address] Eosinophil pct 1.0 % PERFECTO Comment: Interpretive Data Percent cell count reference ranges are not reported, since discordance with absolute values may lead to misinterpretation of CBC data. Current Interpretive Data was last revised on 2017. Testing performed by: [address] [address] Basophil pct 0.6 % PERFECTO Comment: Interpretive Data Percent cell count reference ranges are not reported, since discordance with absolute values may lead to misinterpretation of CBC data. Current Interpretive Data was last revised on 2017. Testing performed by: [address] [address] Blood 03/21/2025 11:2 5 AM CDT 03/21/2025 5:27 PM CDT us Scott Oropeza MD LAB BLOOD ORDERABLE S Final Result [address] Department [place] [address] * CBC with auto differential (03/21/2025 11:25 AM CDT) WBC 7.25 3.80 - 9.90 K/cumm Comment:Testing performed by : [address] [address] Hgb 14.0 13.0 - 17.5 g/dL PER[facility]ECT[facility] Comment:Testing performed by : [address] [address] Hct 43.3 38.9 - 50.3 % PERFECTO Comment:Testing performed by : [address] [address] Plt 198 150 - 400 K/cumm PERFECTO Comment:Testing performed by : [address] [address] MPV 9.2 9.1 - 12.3 fL CERNER CH Comment:Testing performed by : [facility], [address] [place] [address]., [id number] RBC 4.56 4.30 - 5.80 M/cumm CERNER CH Comment:Testing performed by : [facility], [address] [place] [address]., [id number] MCV 95.0 81.3 - 96.4 fL CERNER CH Comment:Testing performed by : [facility], [address] [place] [address]., [address] MCH 30.7 27.1 - 33.3 pg CERNER CH Comment:Testing performed by : [facility], [address] [place] [address], [address] MCHC 32.3 32.3 - 35.7 g/dL CERNER CH Comment:Testing performed by : [facility], [address] [place] [address], [id number] RDW CV 12.3 11.1 - 14.9 % CERNER CH Comment:Testing performed by : [facility], [address] [place] [address], [address] RDW SD 43.0 35.7 - 48.1 fL CERNER CH Comment:Testing performed by : [facility], [address] [place] [address], [id number] NRBC abs 0.00 0.00 - 0.01 K/cumm CERNER CH Comment:Testing performed by : [address] [address] Blood 03/21/2025 11:2 5 AM CDT 03/21/2025 5:27 PM CDT us Scott Oropeza MD LAB BLOOD ORDERABLE S Final Result [address] Department [place] [address] * Lipase (03/21/2025 11:25 AM CDT) Lipase 38 10 - 99 Units/L Comment:Testing performed by : [address], [address] Blood 03/21/2025 11:2 5 AM CDT 03/21/2025 5:27 PM CDT us Scott Oropeza MD LAB BLOOD ORDERABLE S Final Result [facility] [address] Department [place] [address] * (ABNORMAL) Comprehensive metabolic panel (03/21/2025 11:25 AM CDT) Sodium 137 135 - 145 mmol/L Comment:Testing performed by : [facility], [address] [place] [address]., [id number] Potassium, pl 4.0 3.3 - 4.9 mmol/L [facility] Comment:Testing performed by : [address] [address] Chloride 100 97 - 110 mmol/L [facility] [facility] Comment:Testing performed by : [address] [address] CO2 23 22 - 32 mmol/L [facility] Comment:Testing performed by : [address] [address] Anion gap 14 2 - 15 mmol/L [facility] Comment:Testing performed by : [address] [address] BUN 19 6 - 25 mg/dL [facility] Comment:Testing performed by : [address] [address] Creatinine 1.13 0.80 - 1.30 mg/dL [facility] Comment:Testing performed by : [address] [address] Glucose 98 70 - 199 mg/dL [facility] Comment: Interpretive Data Fasting glucose >/= 126 mg/dl is diagnostic for diabetes. Fasting is defined as no caloric intake for at least 8 hours. Fasting glucose between 100 mg/dl to 125 mg/dl is diagnostic of prediabetes. In a patient with classic symptoms of hyperglycemia or hyperglycemic crisis, a random glucose >/= 200 mg/dl is diagnostic for diabetes. In the absence of unequivocal hyperglycemia, results should be confirmed by repeat testing. The classification and Diagnosis of Diabetes Diabetes Care 202; 46: S19-S40. Current interpretive data was last revised 2022. Testing performed by: [facility], [address] [place] [address]., [address] Calcium 9.4 8.5 - 10.3 mg/dL [facility] Comment:Testing performed by : [facility], [address] [place] [address]., [address] Bilirubin, total 0.5 0.1 - 1.2 mg/dL [facility] Comment:Testing performed by : [address] [address] Protein, pl 7.2 6.5 - 8.5 g/dL [facility] Comment:Testing performed by : [address], [address] Albumin 4.4 3.5 - 5.0 g/dL [facility] Comment:Testing performed by : [facility], [address] [place] [address]., [address] Alk phos 37(L) 40 - 130 Units/L [facility] Comment:Testing performed by : [address], [address] ALT 25 7 - 55 Units/L [facility] Comment:Testing performed by : [address], [address] AST 33 10 - 50 Units/L [facility] Comment:Testing performed by : [address] [address] Blood 03/21/2025 11:2 5 AM CDT 03/21/2025 5:27 PM CDT us Scott Oropeza MD LAB BLOOD ORDERABLE S Final Result [address] Department [place] [address] * ECG 12 lead (01/26/2025 8:08 AM CDT) 01/26/2025 8:05 AM CDT Narrative [facility] - 01/26/2025 11:36 AM CDT Vent Rate: 53 bpm RR Interval: 1123 msec MD Interval: 161 msec QRS Duration: 95 msec QT Interval: 436 msec QTC Interval: 419 msec P-R-T [place]: 31 - 46 - 44 degrees IMPRESSION: SINUS BRADYCARDIA No prior EKG for comparison Electronically Signed By: Dr Teto Martinez Scott Oropeza MD ECG ORDERABLES Fin al Result [facility] * Troponin T high-sensitivity (01/26/2025 8:00 AM CDT) Trop T hs 7 <=22 ng/L Comment: Interpretive Data For further hscTnT resources including the diagnostic algorithm and an aid in interpretation, copy and paste this link: https://nrl.testcatalog.org/show/hsTrop Current Interpretive Data last revised 2020. Blood 01/26/2025 8:00 AM CDT 01/26/2025 8:16 AM CDT Scott Oropeza MD LAB BLOOD ORDERABLE S Final Result Performing Organization Address City/[facility]/ZIP Co de Phone Number PER[facility]O [facility] ([address] Department [place] [address] * eGFR (01/26/2025 8:00 AM CDT) eGFR >90 >=60 mL/min/1. 73 m2 Comment: Interpretive Data Reference Interval Normal >/= 90 mL/min/1.73m2 Mildly decreased* 60 - 89 mL/min/1.73m2 Mildly to moderately decreased 45 - 59 mL/min/1.73m2 Moderately to severely decreased 30 - 44 mL/min/1.73m2 Severely decreased 15 - 29 mL/min/1.73m2 Kidney Failure < 15 mL/min/1.73m2 *Relative to young adult level Estimated glomerular filtration rate is determined by the 2020 CKD-EPI equation recommended by the National Kidney Foundation (A Unifying Approach to GFR Estimation: Recommendations of the NKF-ASK Task Force on Reassessing the Inclusion of Race in Diagnosing Kidney Disease, JASN 2020). The CKD-EPI equation should not be used for patients with unstable renal function and has not been validated in children and those over 70. Current interpretive data was last reviewed 2021. Blood 01/26/2025 8:00 AM CDT 01/26/2025 8:16 AM CDT Scott Oropeza MD LAB BLOOD ORDERABLE S Final Result Performing Organization Address [facility] de Phone Number [facility] ([place]) 1 [facility] [place] [address] * PSA screen (01/26/2025 8:00 AM CDT) PSA-Total 0.34 <=5.40 ng/mL Comment: Interpretive Data AGE SEX REFERENCE INTERVAL 0 minutes-150 years Female None 0 minutes-49 years Male None 50-59 years Male 0-3.90 60-69 years Male 0-5.40 70-79 years Male 0-6.20 80-150 years Male 0-6.20 The Sukhdev PSA Total assay procedure was used. Results from different manufacturers or methods may not be comparable. Serial testing should be performed using the same method. Current interpretive data last revised 21. Blood 01/26/2025 8:00 AM CDT 01/26/2025 8:16 AM CDT Scott Oropeza MD LAB BLOOD ORDERABLE S Final Result Performing Organization Address [facility] Co de Phone Number PERFECTO OLIVARE[facility] ([place]) 1 [facility] [place] [address] * Lipid panel (01/26/2025 8:00 AM CDT) Cholesterol 162 30 - 199 mg/dL Comment: Interpretive Data Ages < or = 19 years Acceptable: <170 mg/dL Borderline high: 170-199 mg/dL High: >or= 200 mg/dL Ages > or = 20 years Desirable: <200 mg/dL Borderline high: 200-239 mg/dL High: >or= 240 mg/dL Literature References: 1. Expert Panel on Integrated Guidelines for Cardiovascular Health and Risk Reduction in Children and Adolescents. Pediatrics 2011;128:S213 2. NCEP Expert Panel. Circulation 2004;110:227 Current Interpretive Data was last revised on 2018. Triglycerides 138 <=149 mg/dL [facility] ([place]) Comment: Interpretive Data Ages < or = 9 years Acceptable: <75 mg/dL Borderline high: 75-99 mg/dL High: >or= 100 mg/dL Ages 10 to 20 years Acceptable: <90 mg/dL Borderline high: 90-129 mg/dL High: >or= 130 mg/dL Ages > or = 20 years Desirable: <150 mg/dL Borderline high: 150-199 mg/dL High: 200-499 mg/dL Very high: >or= 499 mg/dL Literature References: 1. Expert Panel on Integrated Guidelines for Cardiovascular Health and Risk Reduction in Children and Adolescents. Pediatrics 2011;128:S213 2. NCEP Expert Panel. Circulation 2004;110:227 Current Interpretive Data was last revised on 2018. HDL 59 >=40 mg/dL [facility]) Comment: Interpretive Data Ages < or = 19 years Acceptable: >45 mg/dL Borderline low: 40-45 mg/dL Low: <40 mg/dL Ages > or = 20 years Desirable: >or= 60 mg/dL Low: <40 mg/dL Literature References: 1. Expert Panel on Integrated Guidelines for Cardiovascular Health and Risk Reduction in Children and Adolescents. Pediatrics 2011;128:S213 2. NCEP Expert Panel. Circulation 2004;110:227 Current Interpretive Data was last revised on 2018. LDL, calculated 79 <=129 mg/dL [facility]) Comment: Interpretive Data Ages < or = 19 years Acceptable: <110 mg/dL Borderline high: 110-129 mg/dL High: >or= 130 mg/dL Ages > or = 20 years Optimal: <100 mg/dL Near optimal: 100-129 mg/dL Borderline high: 130-159 mg/dL High: >160 mg/dL Calculated using the Temple LDL-C estimating equation. This equation was implemented on 2024. Prior to this date LDL-C was estimated using the Friedewald equation. Literature References: 1. Expert Panel on Integrated Guidelines for Cardiovascular Health and Risk Reduction in Children and Adolescents. Pediatrics 2011;128:S213 2. NCEP Expert Panel. Circulation 2004;110:227 3. Maverick M et al. AMRIK Cardiol. 2020 November 17;5(5):540-548. doi: 10.1001/jamacardio.2020.0013 Current Interpretive Data was last revised on 2024. Non-HDL Cholesterol 103 mg/dL [facility] ([place]) Comment: Interpretive Data Ages < or = 19 years Acceptable: <120 mg/dL Borderline high: 120-144 mg/dL High: >145 mg/dL Ages > or = 20 years When triglycerides are >200 mg/dL, Non-HDL cholesterol is a secondary target of therapy with treatment goals that are 30 mg/dL greater than the LDL cholesterol target. Literature References: 1. Expert Panel on Integrated Guidelines for Cardiovascular Health and Risk Reduction in Children and Adolescents. Pediatrics 2011;128:S213 2. NCEP Expert Panel. Circulation 2004;110:227 Current Interpretive Data was last revised on 2018. Chol/HDL ratio 3 [facility] ([place]) Blood 01/26/2025 8:00 AM CDT 01/26/2025 8:16 AM CDT us Scott Oropeza MD LAB BLOOD ORDERABLE S Final Result [facility] ([place]) 1 [facility] Department [place] [address] * (ABNORMAL) Comprehensive metabolic panel (01/26/2025 8:00 AM CDT) Sodium 138 135 - 145 mmol/L Potassium, pl 4.0 3.3 - 4.9 mmol/L [facility] ([place]) Chloride 100 97 - 110 mmol/L [facility] ([place]) CO2 27 22 - 32 mmol/L [facility] ([place]) Anion gap 12 2 - 15 mmol/L [facility] ([place]) BUN 11 6 - 25 mg/dL [facility] ([place]) Creatinine 0.78(L) 0.80 - 1.30 mg/dL [facility] ([place]) Glucose 106 70 - 199 mg/dL [facility] ([place]) Comment: Interpretive Data Fasting glucose >/= 126 mg/dl is diagnostic for diabetes. Fasting is defined as no caloric intake for at least 8 hours. Fasting glucose between 100 mg/dl to 125 mg/dl is diagnostic of prediabetes. In a patient with classic symptoms of hyperglycemia or hyperglycemic crisis, a random glucose >/= 200 mg/dl is diagnostic for diabetes. In the absence of unequivocal hyperglycemia, results should be confirmed by repeat testing. The classification and Diagnosis of Diabetes Diabetes Care 2021; 46: S19-S40. Current interpretive data was last revised 2022. Calcium 9.6 8.5 - 10.3 mg/dL [facility] ([place]) Bilirubin, total 0.6 0.1 - 1.2 mg/dL [facility] ([place]) Protein, pl 7.0 6.5 - 8.5 g/dL [facility] ([place]) Albumin 4.5 3.5 - 5.0 g/dL [facility] ([place]) Alk phos 33(L) 40 - 130 Units/L [facility] ([place]) ALT 26 7 - 55 Units/L [facility] ([place]) AST 29 10 - 50 Units/L [facility] ([place]) Blood 01/26/2025 8:00 AM CDT 01/26/2025 8:16 AM CDT us Scott Oropeza MD LAB BLOOD ORDERABLE S Final Result [facility] ([place]) 1 [facility] Department [place] [address] * Hepatitis C antibody Blood (06/25/2023 9:35 AM 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) Hep C Ab Nonreactive Nonreactive [facility] ([place]) Comment: Interpretive Data Nonreactive: Antibodies to HCV not detected. Does NOT exclude the possibility of recent exposure to HCV. Equivocal: Equivocal for HCV antibodies. Supplemental molecular testing will be automatically performed to determine infection status in accordance with current CDC screening recommendations. Reactive: Positive for HCV antibodies. This may represent current or past HCV infection. Supplemental molecular testing will be automatically performed to determine current infection status in accordance with current CDC screening recommendations. Interpretive data was last revised on 2019. Testing performed by: [facility], [address] [place] [address], [place]., [address] Blood 06/25/2023 9:35 AM 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 06/25/2023 11:05 AM 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 us Naa Richey MD LAB MICROBIOLOGY - GENERAL ORDERABLES Edited Result - Final [facility] ([place]) 1 [facility] Department [place] [address] * CT Abdomen Pelvis W Contrast (04/14/2017 3:02 PM CDT) Anatomical Region Laterality Modality Body N/A Computed Tomogra phy 04/14/2017 3:02 PM CDT Narrative 04/14/2017 3:[address] Abd/Pel W [address] Acc#: [id number] DATE OF EXAM: Apr [address] Abd/Pel W [address] HISTORY: Intermittent, sharp left lower quadrant pain for several months. Prior cholecystectomy. History of skin cancer.. TECHNIQUE: Oral and IV contrast (100 mL Optiray 320). Spiral axial scans from lung bases to ischial tuberosities. Coronal reformatted images. COMPARISON: CT abdomen and pelvis on 04/20/2007. FINDINGS: Partially visualized lung bases are clear. Gallbladder surgically absent. Diffuse hypodensity of liver suggests fatty change. No focal hepatic abnormality is seen. Bile ducts appear normal for a postcholecystectomy patient. Pancreas, spleen, adrenal glands, kidneys, ureters and urinary bladder are normal. Prostate gland is enlarged with a punctate calcification centrally just to left of midline. A few scattered diverticula are seen in the sigmoid and descending colon without changes of diverticulitis. Appendix is normal. No abnormally dilated colon or small bowel is seen. No free fluid is identified. No lymphadenopathy is seen. Abdominal and pelvic wall structures are intact. Bony structures are unremarkable. IMPRESSION: 1. Status post cholecystectomy. 2. Prostatomegaly. 3. Mild diverticulosis of colon without diverticulitis. 4. Fatty liver. 5. No other significant abdominal or pelvic findings. Electronically signed by: Alex Glass Jr., M.D. Interpreting Physician: DR ALEX GLASS M.D. Read on: Apr 14 2017 2:32P Transcribed by: [facility] On: Apr 14 2017 2:30P Approved Electronically by: JAYDEN Mcdowell, DR SQUIRES on: Apr 14 2017 2:30P Ordering DR: NAA RICHEY Attending DR: NAA RICHEY Attending: NAA RICHEY Requesting: NAA RICHEY Requesting Attending Attending ID: [id number] Requesting ID: [id number] Report To 1 ID: [id number] Report To 1 Name: NAA RICHEY Report To 1 FAX: [phone] Next[employer] Order #: [id number] Procedure Note Miscellaneous, Not In File / Provider, MD Sheyla - 04/14/2017 CT Abd/Pel W [address] Acc#: [id number] DATE OF EXAM: Apr [address] Abd/Pel W [address] HISTORY: Intermittent, sharp left lower quadrant pain for several months. Prior cholecystectomy. History of skin cancer.. TECHNIQUE: Oral and IV contrast (100 mL Optiray 320). Spiral axial scans from lung bases to ischial tuberosities. Coronal reformatted images. COMPARISON: CT abdomen and pelvis on 04/20/2007. FINDINGS: Partially visualized lung bases are clear. Gallbladder surgically absent. Diffuse hypodensity of liver suggests fatty change. No focal hepatic abnormality is seen. Bile ducts appear normal for a postcholecystectomy patient. Pancreas, spleen, adrenal glands, kidneys, ureters and urinary bladder are normal. Prostate gland is enlarged with a punctate calcification centrally just to left of midline. A few scattered diverticula are seen in the sigmoid and descending colon without changes of diverticulitis. Appendix is normal. No abnormally dilated colon or small bowel is seen. No free fluid is identified. No lymphadenopathy is seen. Abdominal and pelvic wall structures are intact. Bony structures are unremarkable. IMPRESSION: 1. Status post cholecystectomy. 2. Prostatomegaly. 3. Mild diverticulosis of colon without diverticulitis. 4. Fatty liver. 5. No other significant abdominal or pelvic findings. Electronically signed by: Alex Glass Jr., M.D. Interpreting Physician: DR ALEX GLASS M.D. Read on: Apr 14 2017 2:32P Transcribed by: [facility] On: Apr 14 2017 2:30P Approved Electronically by: JAYDEN Mcdowell, DR SQUIRES on: Apr 14 2017 2:30P Ordering DR: NAA RICHEY Attending DR: NAA RICHEY Attending: NAA RICHEY Requesting: NAA RICHEY Requesting Attending Attending ID: [id number] Requesting ID: [id number] Report To 1 ID: [id number] Report To 1 Name: NAA RICHEY Report To 1 FAX: [phone] [employer] Order #: [id number] us Naa Richey MD IMG CT PROCEDURES Final Re sult * COLONOSCOPY (04/17/2015 12:00 AM CDT) Anatomical Region Laterality Modality Other Narrative 04/17/2015 12:00 AM CDT Ordered by an unspecified provider. Procedure Note Provider, MD Sheyla - 04/17/2015 12:00 AM CDT PROCEDURE REPORT Patient: SANTINO GUEVARA Account: [id number] Room No: : 1955 Patient Type: [facility] Attend.: Miguel Altman M.D. Admit Date: 04/17/2015 Dict.: Miguel Altman M.D. Disch. Date: 04/17/2015 NAME OF PROCEDURE: Colonoscopy. DATE: 04/17/2015. HISTORY: 59-year-old male with a prior history of colonic polyps. PHYSICAL EXAMINATION: Well-developed male. Lungs are clear.Cardiovascular examination is unremarkable. PROCEDURE: Colonoscopy was performed with the Olympus videoendoscope.Patient was premedicated by Anesthesia. On digital examination, no abnormalitiesare palpable. We inserted the endoscope and advanced it to the cecum.Colonic prep was excellent. We carefully searched the mucosa, could find noevidence of inflammation or neoplasia anywhere through the length of the bowel.Patient tolerated procedure without difficulty. POSTOPERATIVE DIAGNOSIS: Normal colonoscopy. PLAN: Surveillance, five years. Electronically Authenticated by: Miguel Altman MD On 04/17/2015 02:01 PM CDT Miguel Altman M.D. DR/orquidea TD: 04/17/2015 12:28 CC: Naa Richey M.D. Historical Provider ENDOSCOPY PROCEDURES Stephenie l Result from Last 3 Months or Most Recently Relevant to Health Maintenance Insurance MEDICARE [facility] MEDICARE [facility] MEDICARE [facility] Care Teams Fur Weigher Relationship Specialty Start Date End Date Scott Oropeza MD [address] [address] PCP - General Family Practice 06/23/24 Carlos Alberto Moreno, ELECTRONIC WARFARE OFFICER Speech Language Pathologist Speech Therapy 12/17/23
--- NOTE | 2025-04-25 10:24 | WPDANESEPPF ---
Anes - Initial Pre Proc Eval Procedure: Operation Date: 04/25/25 11:30 Proposed Procedures p Screening Colonoscopy - Roni Rolon MD Date/Time: 04/25/25 10:24 Surgeon: Roni Rolon MD Pre Op Diagnosis: Personal history of colon polyps, unspecified Patient Data Age: 69 Gender: M Height: 1.75 m Weight: 102.2 kg Allergies Allergy/AdvReac Type Severity Reaction Status Date / Time Sulfa (Sulfonamide Allergy Unknown Unknown Verified 04/25/25 10:23 Antibiotics) Home Medications ?Medication ?Instructions ?Recorded ?Confirmed ?Type Adult Low Dose Aspirin 81 mg PO DAILY 05/07/20 04/14/25 History alprazolam 0.5 mg tablet 0.5 mg PO PRN PRN Sleep 05/07/20 04/14/25 History lisinopril 20 12.5 - 20 tablet PO DAILY 05/07/20 04/14/25 History mg-hydrochlorothiazide 12.5 mg tablet sertraline 50 mg tablet 50 mg PO DAILY 05/07/20 04/14/25 History fluticasone propionate 44 44 mcg inhalation 2XD PRN 03/13/22 04/14/25 History mcg/actuation HFA aerosol inhaler shortness of breath or wheezing (Flovent HFA) omeprazole 20 mg capsule,delayed 20 mg PO DAILY #30 caps 03/26/22 04/14/25 Rx release budesonide-formoterol HFA 80 2 puff inhalation Q12H PRN 04/14/25 04/14/25 History mcg-4.5 mcg/actuation aerosol shortness of breath or wheezing inhaler (Breyna) clopidogrel 75 mg tablet 75 mg PO DAILY 04/14/25 04/14/25 History icosapent ethyl 1 gram capsule 2 g PO BID 04/14/25 04/14/25 History (Vascepa) rosuvastatin 40 mg tablet 40 mg PO DAILY 04/14/25 04/14/25 History semaglutide (weight loss) 0.5 0.5 mg subcut WEEKLY 04/14/25 04/14/25 History mg/0.5 mL subcutaneous pen injector (Wegovy) Patient hx anesthesia problems: none Family hx anesthesia problems: none Results Review: All pre-operative results and documents have been reviewed as part of the pre-operative evaluation. [facility] Past Medical History Medical History (Updated 04/24/25 @ 10:03 by Zachery Brannon DO) STUART (obstructive sleep apnea) CAD (coronary artery disease) Elevated transaminase measurement Fatty liver Choking Adenomatous colon polyp Obesity Anxiety Chronic GERD Hypercholesterolemia History of SCC (squamous cell carcinoma) of skin Actinic keratosis Hypertension Surgical History Surgical History (Updated 04/24/25 @ 10:03 by Zachery Brannon DO) History of coronary artery stent placement History of blepharoplasty History of tonsillectomy History of cholecystectomy Family History Family History (System 09/10/23 @ 09:20 by Selena Pfeiffer) Father Heart disease Skin cancer Sibling Heart disease Cancer Skin cancer Mother Kidney disease Cancer Social History Social History (System 09/10/23 @ 09:20 by Selena Pfeiffer) Smoking status: Never smoker Alcohol intake: current Drinks per week: 3 Alcohol use details: SOCIALLY Substance use: never Substance use type: does not use Living arrangements: with family Spiritual care concerns: No Anes - Eval Final PreProcedure Day of Procedure 04/25/25 10:24 Patient weight: obese Heart: regular rate and rhythm Lungs: clear to auscultation Airway: Mallampati scale class II Neurological: alert and oriented Last oral intake: >/= 8 hours ASA classification: III Emergent: no Anesthetic plan: proceed Anesthesia type and monitoring: general GIVS and standard monitoring Results Review: All pre-operative results and documents have been reviewed as part of the pre-operative evaluation. Informed Consent: The patient's anesthetic plan and its attendant risks and benefits were discussed with the patient/family/POA. Questions were solicited and answers provided to the satisfaction of the patient/family/POA.
[2025-04-25 10:26] VITALS: BP 152/91; PULSE 80; RESP 20; TEMP 36.1; O2SAT 98; BMI 32.3
[2025-04-25] MEDS: LACTATED RINGERS 1,000 ML 150 ML IV CONT (10:29)
--- NOTE | 2025-04-25 11:34 | PM.HPGS ---
History of Present Illness History of Present Illness Consent: Risks, benefits, and alternatives have been discussed and questions answered. Patient agrees to proceed with procedure. Chief complaint: Personal history of colon polyps, unspecified Narrative: Darian Duran is a 69 year old male with colon polyp in 2019 Review of Systems Review of Systems: All systems reviewed & are unremarkable except as noted in HPI and below PMFSH Past Medical History Medical History (Updated 04/24/25 @ 10:03 by Zachery Brannon DO) STUART (obstructive sleep apnea) CAD (coronary artery disease) Elevated transaminase measurement Fatty liver Choking Adenomatous colon polyp Obesity Anxiety Chronic GERD Hypercholesterolemia History of SCC (squamous cell carcinoma) of skin Actinic keratosis Hypertension Surgical History Surgical History (Updated 04/24/25 @ 10:03 by Zachery Brannon DO) History of coronary artery stent placement History of blepharoplasty History of tonsillectomy History of cholecystectomy Family History Family History (System 09/10/23 @ 09:20 by Selena Pfeiffer) Father Heart disease Skin cancer Sibling Heart disease Cancer Skin cancer Mother Kidney disease Cancer Social History Social History (System 09/10/23 @ 09:20 by Selena Pfeiffer) Smoking status: Never smoker Alcohol intake: current Drinks per week: 3 Alcohol use details: SOCIALLY Substance use: never Substance use type: does not use Living arrangements: with family Spiritual care concerns: No Meds Home Medications and Allergies Home Medications ?Medication ?Instructions ?Recorded ?Confirmed ?Type Adult Low Dose Aspirin 81 mg PO DAILY 05/07/20 04/25/25 History alprazolam 0.5 mg tablet 0.5 mg PO PRN PRN Sleep 05/07/20 04/14/25 History lisinopril 20 12.5 - 20 tablet PO DAILY 05/07/20 04/25/25 History mg-hydrochlorothiazide 12.5 mg tablet sertraline 50 mg tablet 50 mg PO DAILY 05/07/20 04/25/25 History fluticasone propionate 44 44 mcg inhalation 2XD PRN 03/13/22 04/14/25 History mcg/actuation HFA aerosol inhaler shortness of breath or wheezing (Flovent HFA) omeprazole 20 mg capsule,delayed 20 mg PO DAILY #30 caps 03/26/22 04/25/25 Rx release budesonide-formoterol HFA 80 2 puff inhalation Q12H PRN 04/14/25 04/14/25 History mcg-4.5 mcg/actuation aerosol shortness of breath or wheezing inhaler (Breyna) clopidogrel 75 mg tablet 75 mg PO DAILY 04/14/25 04/25/25 History icosapent ethyl 1 gram capsule 2 g PO BID 04/14/25 04/25/25 History (Vascepa) rosuvastatin 40 mg tablet 40 mg PO DAILY 04/14/25 04/25/25 History semaglutide (weight loss) 0.5 0.5 mg subcut WEEKLY 04/14/25 04/25/25 History mg/0.5 mL subcutaneous pen injector (Jacquesvy) Allergies Allergy/AdvReac Type Severity Reaction Status Date / Time Sulfa (Sulfonamide Allergy Unknown Unknown Verified 04/25/25 10:23 Antibiotics) Vital Signs Vital Signs - 24 hr 04/25/25 10:26 Temperature 97.0 F L Pulse Rate 80 Respiratory Rate 20 Blood Pressure 152/91 H Pulse Oximetry 98 Oxygen Delivery Room Air Exam Const: General: comfortable and no acute distress HENMT: Face/Nose/Sinus: Normal nares present Eyes: General: appearance normal, both eyes and all related structures Resp: Auscultation: clear to auscultation bilaterally Cardio: Rate: regular rate Rhythm: regular rhythm GI: Inspection: non-distended GI Palp: Yes Soft to palpation Skin: General skin exam: normal color Extrem: General: normal to inspection Psych: Mental Status: mental status grossly normal Assessment and Plan Assessment and plan (1) Adenomatous colon polyp: Code(s): D12.6 - Benign neoplasm of colon, unspecified Status: Acute Assessment and Plan: colonoscopy
--- NOTE | 2025-04-25 11:57 | S_PTH ---
PATIENT: Darian Duran LOC: [facility] [place]#:[id number] AGE/SX: 69/M ROOM: RE04/25/[address]: Roni Rolon MD : [id number] BED: DIS: 04/25/2025 SPEC #: [id number] RECD: 04/25/25 12:49 STATUS: LISA REWendi #: [id number] KELL: 04/25/25 11:[address]: Roni Rolon DEPT: [facility] Surgical RECD BY: Quintin Martin ENTERED: 04/25/25 12:49 SP TYPE: Surgical OTHR DR: Scott OropezaMD Tissues: A - Colon Polypectomy B - Colon Polypectomy Procedures: Hematoxylin and Eosin Stain Gross and Microscopic Level 4
[2025-04-25 12:02] VITALS: BP 120/75; PULSE 64; RESP 19; O2SAT 97
[2025-04-25 12:09] VITALS: BP 123/82; PULSE 64; RESP 17; O2SAT 99
[2025-04-25 12:16] VITALS: BP 138/84; PULSE 58; RESP 14; O2SAT 100
== END 2025-04-25 12:21 | disposition home or self-care (01) ==
PROVIDERS: PCP Family Medicine; Referring Provider Internal Medicine Gastroenterology; Visit Provider Internal Medicine Gastroenterology
PROC: 0DJD8ZZ Inspection of Lower Intestinal Tract, Via Natural or Artificial Opening Endoscopic (ICD-10-PCS; CPT 45378; principal; 2025-04-25 11:30)
DX: Z12.11 Encounter for screening for malignant neoplasm of colon (principal); D12.4 Benign neoplasm of descending colon; D12.5 Benign neoplasm of sigmoid colon; K64.8 Other hemorrhoids; I10 Essential (primary) hypertension; G47.33 Obstructive sleep apnea (adult) (pediatric); I25.10 Atherosclerotic heart disease of native coronary artery without angina pectoris; F41.9 Anxiety disorder, unspecified; K21.9 Gastro-esophageal reflux disease without esophagitis; E78.00 Pure hypercholesterolemia, unspecified; L57.0 Actinic keratosis; E66.9 Obesity, unspecified; Z68.32 Body mass index [BMI] 32.0-32.9, adult; Z79.51 Long term (current) use of inhaled steroids; Z79.02 Long term (current) use of antithrombotics/antiplatelets; Z79.85 Long-term (current) use of injectable non-insulin antidiabetic drugs; Z98.890 Other specified postprocedural states; Z90.49 Acquired absence of other specified parts of digestive tract; Z95.5 Presence of coronary angioplasty implant and graft; Z85.828 Personal history of other malignant neoplasm of skin; Z84.0 Family history of diseases of the skin and subcutaneous tissue; Z82.49 Family history of ischemic heart disease and other diseases of the circulatory system
CPT/HCPCS: 45385; 88305; J2704; J7120